=== PATIENT | female | born 1995 | race Hispanic/Latino ===

== ENCOUNTER 2023-10-07 08:34 | Inpatient (IN) | payer BC ==
[2023-10-07 09:04] VITALS: BMI 26.3
[2023-10-07 09:19] LABS: Fetal Membranes Rupture RUPTURE DETECTED (No Rupture)
[2023-10-07] MEDS ORDERED: Ondansetron PF 4 MG/2 ML Vial IVP PRN ×2 (10:01→23:19)
[2023-10-07] MEDS ORDERED: Carboprost 250 MCG/ML AMP IM PRN (10:01)
[2023-10-07] MEDS ORDERED: fentaNYL 50 mcg/mL 1 mL Vial SLOW IVP PRN (10:01)
[2023-10-07] MEDS ORDERED: Diphenoxylate HCl/Atropine Tablet PO PRN (10:01)
[2023-10-07] MEDS ORDERED: Promethazine HCl 25 MG/ML VIAL IM PRN ×2 (10:01→23:19)
[2023-10-07] MEDS ORDERED: hydrALAZINE 20 MG/ML VIAL SLOW IVP PRN (10:01)
[2023-10-07] MEDS ORDERED: Lidocaine 1% (PF) 30 ML VIAL SC PRN (10:01)
[2023-10-07] MEDS ORDERED: Methylergonovine 0.2 MG/ML VIAL IM PRN (10:01)
[2023-10-07] MEDS ORDERED: Ibuprofen 800 MG TAB PO PRN (10:01)
[2023-10-07] MEDS ORDERED: Acetaminophen 500 MG TAB PO PRN (10:01)
[2023-10-07] MEDS ORDERED: Misoprostol 200 MCG TAB PR PRN (10:01)
[2023-10-07] MEDS ORDERED: HYDROcodone/Acetaminophen 5/325 mg Tablet PO PRN (10:01)
[2023-10-07] MEDS ORDERED: Lactated Ringer's 1,000 ML IV SCH (10:15)
[2023-10-07] MEDS ORDERED: Oxytocin 30 units/NS 500 ML 500 ML IV SCH ×2 (10:15)
[2023-10-07] MEDS ORDERED: Penicillin G Potassium 5 MILL.UNITS in Sodium Chloride 0.9% 100 ML IVPB SCH (10:15)
[2023-10-07 10:31] LABS: Mean Corpuscular HGB CONC 34.3 g/dL (32.0-36.0); Mean Corpuscular Hemoglobin 30.4 pg (27.0-33.0); Mean Corpuscular Volume 88.6 fl (81.6-98.3); Mean Platelet Volume 12.2 fl (7.4-10.4); Platelet Count 135 10x3/uL (150-450); RBC Distribution Width 13.5 % (11.5-14.5); Red Blood Cell (RBC) Count 3.95 10x6/uL (3.90-5.03); White Blood Cell (WBC) Count 6.5 10x3/uL (3.5-10.5)
[2023-10-07 11:08] LABS: Syphilis Antibody Nonreactive (Nonreactive); Syphilis Antibody Index 0.08 S/CO (<1.00 Non-Reactive)
[2023-10-07 11:10] LABS: HBSAg Index 0.29 S/CO (0-0.99); Hep B Surf Ag - L&D Non-Reactive S/CO (NonReactive)
[2023-10-07] MEDS: Penicillin G 2.5 MILL.units 2.5 MILL.UNITS in Premix 1 BAG IVPB SCH ×2 (14:21→18:15)
[2023-10-07] MEDS ORDERED: fentaNYL/Ropivacaine Epidural 100 ML ONE (22:57)
[2023-10-07] MEDS ORDERED: ePHEDrine Sulfate 50 MG/10 ML VIAL SLOW IVP PRN (23:19)
[2023-10-07] MEDS ORDERED: Moisturizing Cream (Eucerin) 113 GM JAR TOP PRN (23:19)
[2023-10-07] MEDS ORDERED: Lactated Ringer's 500 ML IV PRN (23:19)
[2023-10-07] MEDS ORDERED: Naloxone HCl 0.4 mg/ml Vial IVP PRN ×2 (23:19)
[2023-10-07] MEDS ORDERED: diphenhydrAMINE 50 MG/ML VIAL IVP PRN (23:19)
[2023-10-07] MEDS ORDERED: Acetaminophen 325 MG TAB PO PRN (23:19)
[2023-10-07] MEDS ORDERED: Communication Order-Pharmacy FS SCH (23:30)
[2023-10-07] MEDS ORDERED: fentaNYL 2 mcg/Ropivacaine 0.2% Epidural 100 ML CADD EPIDURAL SCH (23:30)
[2023-10-08] MEDS ORDERED: Milk Of Magnesia 30 ML UDCUP PO PRN
[2023-10-08] MEDS ORDERED: Boostrix 0.5 ML (Tdap) VIAL (>/=7 yrs of age) IM ONE
[2023-10-08] MEDS ORDERED: Bisacodyl 10 MG SUPP PR PRN
[2023-10-08] MEDS ORDERED: hydrALAZINE 20 MG/ML VIAL SLOW IVP PRN
[2023-10-08] MEDS: Penicillin G 2.5 MILL.units 2.5 MILL.UNITS in Premix 1 BAG IVPB SCH (05:40)
[2023-10-08] MEDS: Ibuprofen 800 MG TAB PO SCH ×3 (06:12→21:22)
[2023-10-08] MEDS: Ferrous Sulfate 325 MG TAB PO SCH ×2 (08:29→15:02)
[2023-10-08] MEDS: Docusate 100 MG CAP PO SCH ×2 (09:33→21:22)
[2023-10-08] MEDS: Prenatal Vitamin 1 TAB PO SCH (09:33)
[2023-10-08] MEDS ORDERED: Zolpidem Tartrate 5 MG TAB PO PRN (23:00)
[2023-10-08 23:43] LABS: #Basophils 0.1 10x3/uL (0.0-0.2); #Eosinphils 0.2 10x3/uL (0.0-0.5); #Monocytes 0.7 10x3/uL (0.0-1.1); #Neutrophils 5.8 10x3/uL (1.5-8.4); %Basophils 0.8 % (0.0-2.0); %Eosinophils 1.7 % (0.0-6.0); %Lymphocytes 23.1 % (18.0-47.0); %Monocytes 7.6 % (0.0-10.0); %Neutrophils 66.5 % (40.0-75.0); Hemoglobin 11.6 g/dL (12.0-15.5); Mean Corpuscular HGB CONC 34.1 g/dL (32.0-36.0); Mean Corpuscular Hemoglobin 30.7 pg (27.0-33.0); Mean Corpuscular Volume 89.9 fl (81.6-98.3); Mean Platelet Volume 12.5 fl (7.4-10.4); Platelet Count 134 10x3/uL (150-450); RBC Distribution Width 13.9 % (11.5-14.5); Red Blood Cell (RBC) Count 3.78 10x6/uL (3.90-5.03); White Blood Cell (WBC) Count 8.8 10x3/uL (3.5-10.5)
[2023-10-09] MEDS: Ibuprofen 800 MG TAB PO SCH (06:03)
[2023-10-09] MEDS: Ferrous Sulfate 325 MG TAB PO SCH (07:22)
[2023-10-09 07:40] VITALS: BP 107/67; TEMP 98.3
[2023-10-09] MEDS: Prenatal Vitamin 1 TAB PO SCH (08:32)
[2023-10-09] MEDS: Docusate 100 MG CAP PO SCH (08:32)
== END 2023-10-09 14:25 | disposition home or self-care (01) | DRG 807 ==
LOC: CSHLD/OP 08:34 → CSHLD 09:43 → CSHPED 10-08 02:02
PROVIDERS: ADMIT Student in an Organized Health Care Education/Training Program; ATTEND Student in an Organized Health Care Education/Training Program
PROC: 10E0XZZ Delivery of Products of Conception, External Approach (ICD-10-PCS; principal; 2023-10-07)
DX: O42.02 Full-term premature rupture of membranes, onset of labor within 24 hours of rupture (principal); Z37.0 Single live birth; Z3A.38 38 weeks gestation of pregnancy; O99.824 Streptococcus B carrier state complicating childbirth
CPT/HCPCS: 36415; 84112; 85025; 85027; 86780; 86850; 86900; 86901; 87340; J2540; J2590; J3010; J3490